=== PATIENT | female | born 1965 | race Caucasian/White ===

== ENCOUNTER 2018-05-02 16:10 | Emergency (ER) | payer MEDICAID ==
[~2018-05-02] VITALS: Ht 170.2 cm; Wt 77.1 kg
[2018-05-02] MEDS ORDERED: DOXYCYCLINE HY100 MG PO (16:40)
== END 2018-05-02 16:44 | disposition home or self-care (01) ==
LOC: ED 16:10
DX: L03.116 Cellulitis of left lower limb (principal); Z86.14 Personal history of Methicillin resistant Staphylococcus aureus infection; J45.909 Unspecified asthma, uncomplicated; F17.200 Nicotine dependence, unspecified, uncomplicated
CPT/HCPCS: 99283

== ENCOUNTER 2018-06-07 17:42 | Emergency (ER) | payer MEDICAID ==
[~2018-06-07] VITALS: Ht 170.2 cm; Wt 77.1 kg
[~2018-06-07 17:42] MED LIST: DOXYCYCLINE HY100 MG PO
== END 2018-06-07 19:10 | disposition left against medical advice (07) ==
LOC: ED 17:42
DX: Z53.21 Procedure and treatment not carried out due to patient leaving prior to being seen by health care provider (principal)

== ENCOUNTER 2021-12-04 22:00 | Inpatient (IN) | payer MEDICAID ==
[~2021-12-04] VITALS: Ht 170.2 cm; Wt 90.7 kg
--- OUTSIDE RECORDS SUMMARY | 2021-12-04 22:08 | XMS ---
PreManage Notification: ARCENIO LOMELI Security Continuous Still Operator Events No recent Security Events currently on file CRITERIA MET - [facility] - 2 Visits in 30 Days CARE PROVIDERS There are no care providers on record at this time. Care Guidelines exist for the following facilities: [facility] ( 02/15/2016 ) David VISIT COUNT (12 MO.) 2 [facility] Tiffanie Alas[address] TOTAL 3 NOTE: Visits indicate total known visits. ED/UCC VISIT TRACKING (12 MO.) 12/04/2021 22:01 DAMIEN Menjivar TYPE: Emergency COMPLAINT: - L HAND INFECTION [facility] DIAGNOSES: - Cellulitis of left upper limb - left hand swelling, hit hand against wall - Pain in left hand - Hand Pain 09/24[facility]2021 16[facility] DIAGNOSES: - Phlebitis and thrombophlebitis of superficial vessels of unspecified lower extremity - lt leg poss infection - Cellulitis of left lower limb - Cellulitis - Leg Pain (Non-traumatic) INPATIENT VISIT TRACKING (12 MO.) No inpatient visits to display in this time frame [email or web address]
[2021-12-04] MEDS ORDERED: ELIQUIS5 MG PO (22:18)
[2021-12-04] MEDS ORDERED: VENTOLIN HFA18 GM INH (22:18)
[2021-12-04] MEDS ORDERED: BACTRIM DS TAB1 EACH PO (22:19)
--- NOTE | 2021-12-05 01:45 | NUR ---
REPORT FROM FLOWER Cooper
--- NOTE | 2021-12-05 02:05 | NUR ---
PT ARRIVED FROM E.D. TO ROOM 119, PATIENT FINANCIAL ADVOCATEILDA ROMERO TO CHECK IN AND START ADMISSION.
--- NOTE | 2021-12-05 02:48 | NUR ---
PT ARRIVED TO [facility] AT 0205, SHE M[facility] OVER [facility] IV ABX COMPLETED AND LR IS NOW INFUSING PER ORDERS. ADMINISTERED 0.6MG OF IV DILAUDID FOR 9/10 PAIN. PROVIDED SNACK TO PT. SHE STATES SHE TOOK 2 PILLS OF ELIQUIS IN THE PAST 24HRS INCASE SHE HAD A CLOT IN HER ARM. PT STATES THIS WAS ELIQUIS LEFT OVER FROM A PREVIOUS BLOOD CLOT IN HER LEG. PT IS EATING A SNACK SITTING AT THE EDGE OF THE BED AT THIS TIME AND DENIES FURTHER NEEDS. CALL LIGHT IS CLOSE.
--- NOTE | 2021-12-05 03:25 | NUR ---
PT ASSISTED TO SET UP FOR SHOWER AT THIS TIME. DISCUSSED PLAN FOR AFTER SHOWER, WILL NEED TO KEEP ARM ELEVATED.
--- NOTE | 2021-12-05 04:08 | NUR ---
PT IN SHOWER, HER SPOUSE IS IN BATHROOM WITH HER ASSISTING WITH SHOWER.
--- NOTE | 2021-12-05 04:53 | NUR ---
PT ADMINISTERED 0.6MG IV DILAUDID FOR PAIN AT LEFT HAND 9/10. PT HAS LEFT HAND ELEVATED IN PILLOW SLING, ICE AT BEDSIDE FOR INTERMITTEN USE. NICOTINE PATCH 14MG PLACED TO RIGHT SHOULDER. PHOTOS TAKEN FOR CHART/ RED CELLULITIS AREAS OUTLINED WITH SKIN MARKER. PHOTO CONSENT SIGNED AND IN CHART ALSO.
--- NOTE | 2021-12-05 05:32 | NUR ---
PT ADMITTED THIS APPROX 0200, SHE HAS SHOWERED, SPOUSE AT BEDSIDE, PHOTOS IN CHART AND CELLULITIS OUTLINED, SHE HAS BEEN REPORTING PAIN 9-10/10 PAIN DILAUDID PRN ADMINISTERED X2 OVER SHIFT. HER LEFT ARM IN PILLOW SLING. AFEBRILE, V/S STABLE.
--- NOTE | 2021-12-05 07:58 | NUR ---
PATIENT REQUESTED PAIN MEDICATION FOR 10/10 PAIN IN HER LEFT HAND. 0.6MG IV DILAUDID ESTEBAN SIVKumar. PATIENT ARE UP IN PILLOWCASE SLING FROM [facility]. PATIENT'S CAPREFILL<3 SECONDS IN ALL LEFT FINGERS AND PATIENT HAS FULL SENSATION OF FINGERS AND CAN MOVE HER FINGERS. COFFEE WITH CREAM AND SUGAR GIVEN TO BOTH PATIENT AND HER SPOUSE. PATIENT HAS NO OTHER CARE NEEDS AT THIS TIME. IN HOUSE REVIEWING THE CHART. CALL IS IN PATIENT'S REACH.
--- NOTE | 2021-12-05 09:26 | NUR ---
PT IS INDEPENDENT IN THE ROOM TO GET TO BATHROOM AND BACK TO BED. AT BEDSIDE. PT IS COMMUNICATING PAIN IN THE HAND AND MOANING AND GRIMMACING. LIDA CRENSHAW NOTIFIED. NO FURTHER NEEDS AT THIS TIME.
--- NOTE | 2021-12-05 10:36 | NUR ---
PATIENT CRYING AND SAYING SHE IS HAVING 10/10 PAIN IN HE LEFT HAND. PO PAIN MEDICATIONS GIVEN AND IV PAIN MEDS HELD AT THIS TIME ASSESSMENT OF IV SITE SHOWS IV IS INFILTRATED AND IV HAS BEEN STOPPED. PO ANXIETY MEDS ALSO GIVEN AND HIGHER DOSE HI/PATCH PLACED ON RIGHT SHOULDER AND OLD PATCH REMOVED. AT BEDSIDE TRYING TO REASSURE PATIENT. PATIENT INFORMS ME THAT SHE DRINKS A 5TH TO A HALF GALLON OF VODKA A DAY FOR THE LAST 5 YEARS. CALL LIGHT IS IN REACH.
--- NOTE | 2021-12-05 10:46 | NUR ---
INFORMED ABOUT PATEINT'S ETOH HX AND INTAKE AND BEER WITH MEALS HAS BEEN ORDERED AND [employer] IS SENDING SOME UP. LIDA BUSBY IS GOING IN TO TRY AND START A NEW IV ON THE PATIENT.
--- NOTE | 2021-12-05 12:04 | NUR ---
AWAITING PICC LINE RN TO START NEW IV PT HAS BEEN UNABLE TO KEEP ACCESS WITHOUT INFILTRATING.
--- NOTE | 2021-12-05 13:33 | NUR ---
PT ASLEEP IN BED WITH LEFT HAND ELEVATED. PTS LEAVING TO GO HOME WITH PLANS TO RETURN. CALL LIGHT IN REACH. NO FURTHER NEEDS AT THIS TIME
--- NOTE | 2021-12-05 13:54 | NUR ---
PT NAPPING IN BED. GIVEN TORADOL AND STARTED VANCO. ADVISED PT TO CALL IMMEDIETLY IF IT STARTS TO HURT
--- NOTE | 2021-12-05 14:28 | NUR ---
PATIENT CURRENTLY HAS HER SECOND BEER FOR THE DAY OPEN ON HER BEDSIDE TABLE AND IS ASLEEP. RESPIRATIONS ARE REGULAR AND EVEN, AND HER CALL LIGHT IS IN REACH.
--- NOTE | 2021-12-05 16:40 | NUR ---
SCHEDULED IV TORADOL SIVP GIVEN BY THIS RN. PATIENT HAS BEEN SLEEPING SINCE LUNCH AND SHOWER AND SECOND BEER IS STILL HALF FULL ON THE BEDSIDE TABLE. RESPIRATIONS=17 AND O2 SAT=96% ON RA. WOKE PATIENT LONG ENOUGH TO CHECK CAP REFILL IN LEFT HAND FINGERS AND CHECK SENSATION AND MOTION. PATIENT CAN STILL WIGGLE ALL FINGERS, CAN FILL ALL HER FINGER TIPS, AND CAP REFILL <3 SECONDS IN ALL FINGERS AND THUMB. PATIENT DENIES ANY OTHER CARE NEEDS AT THIS TIME. CALL LIGHT IN REACH. LEFT ARM IN PILLOW SLING.
--- NOTE | 2021-12-05 17:45 | NUR ---
PATIENT CALLED AND IS STILL HUNGRY. ATE 100% OF HER DINNER AND SINCE HER IS NOT HER SHE IS NOW EATING HIS TRAY. PATIENT WORKING ON HER 3RD BEER FOR THE DAY. PATIENT SAYS THE PAIN IN HER HAND IS 6/10 AT THIS TIME AND SAID,"I'M EMMIE COMFORTABLE RIGHT NOW." CALL LIGHT IN REACH AND PATIENT HAS NO OTHER NEEDS AT THIS TIME.
--- NOTE | 2021-12-05 17:58 | NUR ---
THIS RN WENT BY TO CHECK ON PATIENT AND SHE WAS UP IN THE ROOM GETTING BACK TO THE BED AFTER USING THE BEDSIDE COMMODE. PATIENT HAD HER IV LINE, NG-TUBEE, AND RECTAL TUBE ALL TANGLED UP. THIS RN ASSIST PATIENT IN GETTING BACK IN TO BED AND SORTING HER LINES. I HAVE ASKED PATIENT TO PLEASE CALL IF SHE GETS UP FROM NOW ON [facility] SHE HAS SO MANY LINES. PATIENT VERBALIZED UNDERSTANDING, BUT BED ALARM ALSO PLACE ON. PATIENT SAYS PAIN REMAINS 3/10 AND SHE IS DOING OK. CALL LIGHT IS IN REACH.
--- NOTE | 2021-12-05 18:36 | NUR ---
PATIENT UP TO BATHROOM AND BACK TO BED IND. VITALS AND I&O'S CHARTED. CALL LIGHT IN REACH. NO FURTHER NEEDS AT THIS TIME.
--- NOTE | 2021-12-05 18:49 | NUR ---
PATIENT CALLED FOR 7/10 LEFT HAND PAIN AND WAS GIVEN PO PAIN MEDICATIONS. SEE EMAR. PATIENT DENIED ANY OTHER CARES AT THIS TIME. CALL LIGHT IN REACH.
--- NOTE | 2021-12-05 19:46 | NUR ---
BEDSIDE REPORT FROM FLOWER Lopez RN, PT RESTING IN BED, ALERT AND ORIENTED. SHE HAS HER ARM IN PILLOW CASE SLING, HER IV PUMP IS ALARMING DISTAL OCCLUSION, RESTARTED, NOTED SWELLING AT RIGHT FA, IV SITE AREA, FLOWER RN SAID THAT THIS IS WHERE THE LAST IV SITE INFILTRATED, AWARE, THIS IS LONG ULTRA SOUND GUIDED IV SITE, AND PER FLOWER RN SITE HAS IMPROVED IN REGARDS TO SWELLING.
--- NOTE | 2021-12-05 19:49 | NUR ---
PT REPORTS SHE IS TOO WARM, ROOM TEMP TURNED DOWN AND BEDSIDE FAN PROVIDED.
--- NOTE | 2021-12-05 20:53 | NUR ---
CALL LIGHT ANSWERED. SANDWICH BOX AND BEER PROVIDED REQUESTED. IV ALARMING DISTAL OCCLUSION, CORD CAUGHT IN BED, INFUSING WNL AT THIS TIME. NO ADDITIONAL REQUESTS. CALL LIGHT IN REACH.
--- NOTE | 2021-12-05 22:23 | NUR ---
PT CALLED UP TO BATHROOM TO HAVE BM, FLATUS POSITIVE, VOIDING. IV PUMP S/L FOR BATHROOM PT TANGLED IN LINE
--- NOTE | 2021-12-05 22:45 | NUR ---
INTO PT ROOM TO ROUND, ADMINISTER PRN PAIN AND ANXIETY MEDICATIONS, SHE IS RESTING IN BED ALERT TO STAFF, V/S TAKEN, PT NOTED TO BE DROWSY NODDING OFF TO SLEEP WITH SNORING WHILE NOT ENGAGED IN CONVERSATION. SHE REPORT HER PAIN 9/10 AT HER LEFT HAND, SHE THEN CLOSED HER EYES AND BEGAN TO SNORE. SHE IS ADMINISTERED TORDOL SCHEDULED, 5MG PO OXYCODONE PRN, TYLENOL 500MG PO PRN, AND VISTRIL 50MG PO PRN, SHE SWALLOWED THESE AND SAT UP TO EAT JELLO/PUDDING AND GRANOLA BARS AT BEDSIDE BEFORE SHE IS MADE NPO AT MIDNIGHT. PT HAS NO OTHER CONCERNS OR REQUESTS AT THIS TIME.
--- NOTE | 2021-12-05 23:08 | NUR ---
V/S AND I&O'S DONE AND RECORDED. EMPTIED HAT WITH 800ML URINE. COLD PACK MADE FOR LT HAND. TV GUIDE PROVIDED.
--- NOTE | 2021-12-06 00:30 | NUR ---
PT RESTING IN BED EYES CLOSED RR 22BPM, NO DISTRESS NOTED, NO DISTRESS NOTED. PT LEFT ARM IN PILLOW SLING.
--- NOTE | 2021-12-06 02:35 | NUR ---
PT RESTING QUIETLY IN BED, EYES CLOSED RR 18 BPM, NO DISTRESS NOTED, LEFT ARM ELEVATED UP IN PILLOW CASE SLING.
--- NOTE | 2021-12-06 04:09 | NUR ---
PT UP TO BATHROOM WITH FLOAT NURSE GUNNER RN AT THIS TIME, TO VOID. NO DISTRESS NOTED AT THIS TIME.
--- NOTE | 2021-12-06 04:20 | NUR ---
PT REPORTS PAIN 9/10 AFTER USE THE BATHROOM, PT ADMINISTERED 4MG IV MORPHINE AT THIS TIME PT IS NPO FOR POSSIBLE PROCEDURE TODAY.
--- NOTE | 2021-12-06 05:11 | NUR ---
PT HAS SLEPT WELLOVER SHIFT, UP TO BATHROOM X4, SHE HAS BEEN DROWSY WHEN AWAKE, SHE REPORTS PAIN 9/10 AT LEFT HAND, PRN PAIN MEDICATIONS MANAGEING PAIN WELL. SHE HAS BEEN NPO SINCE MIDNIGHT PER ORDERS. SHE HAS BEEN COOPERATIVE WITH PLAN OF CARE, HER LUE HAS BEEN IN PILLOW CASE SLING WHILE IN BED. SHE ALSO HAS ICE PACK TO TUCKS INTO SLING. SHE REPORTS LARGE QUANTITY OF HARD ALCOHOL INTAKE DAILY, YESTURDAY SHE WAS GIVEN BEERS WITH MEALS WELL BEER WITH LUNCH BOX EARLY IN SHIFT. VOIDING QUANTITY SUFFICIENT PLUS AND BM OVER SHIFT. NO OTHER NEW CONCERNS THIS SHIFT
--- NOTE | 2021-12-06 06:05 | NUR ---
lab unable to draw blood this am, this rn pulled blood from left fa iv site, with 4ml blood waste, then 4ml blood pulled for lab.
--- NOTE | 2021-12-06 06:44 | NUR ---
THIS RN TO ROOM TO ASSIST PTS PRIMARY RN WITH CARES. DR. HOLLIS TO BEDSIDE FOR ROUNDS, NEW ORDERS GIVEN TO APPLY DRESSING TO LEFT HAND. MEDIHONEY APPLIED. XEROFORM APPLIED OVER MEDIHONEY FOLLOWED BY KERLIX GAUZE. PT REPORTS DRESSING "FEELS BETTER." PTS PRIMARY RN REMAINS AT BEDSIDE. NO ADDITIONAL REQUESTS OR COMPLAINTS. CALL LIGHT WITHIN REACH. BED RAILS UP.
--- NOTE | 2021-12-06 07:34 | NUR ---
PT HEARD SCREAMING OUT. THIS RN TO ROOM. PT REPORTS SHE HAD A NIGHTMARE. PT REQUESTS MEDICATION FOR ANXIETY, SEE MAR FOR MEDICATION GIVEN. PUMP ALARMING, DISTAL OCCULSTION. IV ASSESSED, FLUSHES AND PT STATES SHE CAN TASTE SALINE, IV PUMP CONTINUES TO REPORT DISTAL OCCULSION, WILL NOT RESTART. ADDITIONAL BEER PROVIDED PER PT REQUEST. PT DRIFTS BACK TO RESTING WITH EYES CLOSED. RESPRAITIONS EVEN AND UNLABORED. BED RAILS UP. CALL LIGHT WITHIN REACH. PTS PRIMARY RN UPDATED.
--- NOTE | 2021-12-06 08:40 | NUR ---
LAB WAS ABLE TO DRAW BLOOD FROM RAC. PATIENT CAN FEELING HER FINGERS AND DENIES NUMBNESS OR TINGING IN THE HAND. PATIENT CAN MOVE ALL FINGERS AND CAP REFILL TO ALL FINGERS ,3 SECONDS. PATIENT GIVEN PO PAIN MEDS FOR 9/10 LEFT HAND PAIN ALONG WITH SCHEDULED AM MEDS. ASSISTED PATIENT IN SITTING UP FOR BREAKFAST AND PATIENT IS EATING. PATIENT HAS NO OTHE CARE NEEDS AT THIS TIME AND CALL LIGHT IS IN REACH.
--- NOTE | 2021-12-06 08:49 | NUR ---
PATIENT'S IV CONTINUES TO ALARM. IV WILL FLUSH, BUT IV WILL NOT RUN. IV TURNED OFF FOR NOW. CALL LIGHT IS IN REACH.
--- NOTE | 2021-12-06 10:11 | NUR ---
PATIENT IN BED RESTING WITH EYES CLOSED. VITALS AND I&O'S CHARTED. CALL LIGHT IN REACH. NO FURTHER NEEDS AT THIS TIME.
--- NOTE | 2021-12-06 10:30 | NUR ---
THIS RN TO ROOM TO ASSIST DR. MORALES WITH CENTRAL LINE PLACEMENT. LINE PLACEMENT UNSUCESSFUL AT THIS TIME. PT RESTING WITH EYSE CLOSED, SNORNING NOTED, THROUGHOUT PROCEEDURE UNTIL THE LAST 5 MINUTES WHEN PT BEGAN CRYING WITH "10! 10!" OUT OF 10 PAIN. PROCEEDURE STOPPED. PT DRINKS REMAINDER OF BEER AT BEDSIDE AND IS MADE NPO FOR POSSIBLE LINE PLACEMENT IN [place]. PT RESTING ON LEFT SIDE. BED RAILS UP. CALL LIGTH WITHIN REACH. BED RAILS UP. PTS PRMARY RN AND CHARGE NURSE UPDATED.
--- NOTE | 2021-12-06 11:22 | NUR ---
HAS BEEN IN THE ROOM FOR OVER AN HOUR WITH LIDA HCUNG TRY TO PLACE A CENTRAL LINE WHICH WAS UNSUCCESSFUL. PATIENT IS GOING TO NEED TO GO TO SURGERY TO HAVE THE LINE PLACE. PATIENT C/O 9/10 PAIN IN HER LEFT HAND AND NECK NOW. PO OXYCODONE GIVEN. PATIENT IS NOW ON THE PHONE YELLING AT SOMEONE AND TELLING THEM NOT TO COME SEE HER. LIDA CHUNG CAME IN AND TOLD PATIENT SHE WILL HAVE TO BE NPO FOR SURGERY FOR THE NEXT 6 HOURS. PATIENT VERBALIZED UNDERSTANDING AND FINISHED DRINKING THE BEER SHE JUST OPENED. CALL LIGHT IS IN REACH.
--- NOTE | 2021-12-06 11:30 | NUR ---
MICHAEL NOE, TO PTS BEDSIDE TO ASSESSMENT FOR LINE PLACEMENT. PT UPDATED ON PLAN OF CARE. RAYMOND ROMAN RN, ASSITING CUT OFF MACHINE OPERATOR. PT REMAINS NPO.
--- NOTE | 2021-12-06 13:03 | NUR ---
MERLIN, PICC LINE RN, REPORTS TO THIS RN THAT PICC LINE IS CLEAR TO USE. PICC LINE MEASUREMENTS REPORTED 44CM, 2CM EXPOSED, 37 RIGHT ARM CIRCUMFERENCE. LUNCH DELIVERED TO PT. PT SITTING UP IN BED EATING LUNCH. LETTER STAMPING MACHINE OPERATOR AND PTS PRIMARY RN UPDATED. CALL LIGHT ANKITA REACH. BED RAILS UP.
--- NOTE | 2021-12-06 14:03 | NUR ---
PICC LINE HAS BEEN CLEARED FOR USE AND QI CHARGE NURSE HAS HUNG AND STARTED VANCO. PATIENT CAN STILL FEEL AND MOVE ALL HER FINGERS. CAP REFILL TO FINGERS <3 SECONDS. PATIENT IS WORKING ON ANOTHER BEER AND HAS BEEN SLEEPING WHEN STAFF IS NOT WORKING WITH HER. CALL LIGHT IN REACH AND NO OTHER CARE NEEDS NOTED AT THIS TIME.
--- NOTE | 2021-12-06 14:06 | NUR ---
PICC LINE INSERTION: ASKED BY DR VILLEDA TO EVALUATE PATIENT FOR POTENTIAL PICC LINE PLACEMENT DUE TO POOR ACCESS, UNABLE TO DRAW LABS, AND IV ABX. AFTER REVIEWING THE CHART AND INTERVIEWING THE PATIENT, NO ABSOLUTE CONTRAINDICATIONS WERE IDENTIFIED. PATIENT WAS ABLE TO SIGN CONSENT FORM AND ASKS QUESTIONS APPROPRIATELY. PATIENT'S RIGHT ARM IS EVALUATED, LEFT ARM IS GROSSLY INFECTED. USING THE SITE RITE U/S, THE PATIENT'S BRACHIAL VEIN WAS IDENTIFIED. UNABLE TO IDENTIFY RIGHT BASILIC D/T RECENT INFILTRATION OF RIGHT UPPER ARM IV. THE BRACHIAL LOOKS TO BE A GOOD CANDIDATE. NOTED TO BE GREATER THAN 8FR BY SITE RITE U/S. CDC RECOMMENDED GUIDELINES FOR STERILE PREP OF THE INSERTION SITE WERE THEN FOLLWED. THE BRACHIAL VEIN WAS ACCESSED EASILY UPON THE FIRST ATTEMPT. BRISK, DARK, NONPULSATILE BLOOD WAS RETURNED. GUIDEWIRE THREADED EASILY INTO VEIN, WELL INTRODUCER, AND 4FR DUAL PICC LINE. THE PICC WAS PLACED WITH 3ECG AND MAGNET GUIDEANCE, AND NOT ATTEMPTS WERE NEEDED TO REPOSITION PICC. STERILE DRESSING APPLIED AND CHEST XRAY TAKEN. CONFIRMED PLACEMENT IN SUPERIOR VENA CAVA BY DR YEIMI MCNULTY. REPORT TO SHELDON HILTON. PATIENT GIVEN EDUCATION MATERIAL ON PICC. PATIENT ENCOURAGED TO ASK QUESTIONS REGARDING HER PICC NEEDED.
--- NOTE | 2021-12-06 15:31 | NUR ---
PATIENT WAS ASLEEP WHEN THIS RN WENT IN THE ROOM. IN CHAIR AT BEDSIDE. DISCUSSING SHOWER OPTIONS FOR PATIENT WITH ABOUT ASSISTING AND PATIENT WOKE UP SAYING SHE WAS HAVING 8/10 LEFT HAND PAIN. INFORMED THE PATIENT SHE NEEDS TO KEEP HER ARM IN THE PILLOW CASE SLING TO HELP WITH PAIN AND PRESSURE AND PATIENT GIVEN 30MG IV TORADOL. PATIENT'S VANCO STILL INFUSING, WILL DISCUSS SHOWER OPTIONS WHEN INFUSED. CALL LIGHT IS IN REACH.
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
--- NOTE | 2021-12-06 18:33 | NUR ---
PATIENT LEFT HAND DRESSING CHANGED. AREA REMAINS RED AND SWOLLEN WITH SEROSANGUINOUS DRAINAGE. MEDIHONEY APPPLIED, THEN XEROFORM, THEN KERLIX, SECURED BY TAPE. PATIENT TOLERATED THE PROCEDURE WELL. PATIENT HAS NO OTHER CARE NEEDS AT THIS TIME. AT BEDSIDE. PATIENT ATE 100% OF DINNER AND SHE IS DRINKING A BEER. CALL LIGHT IS IN REACH.
--- NOTE | 2021-12-06 18:50 | NUR ---
PT ASLEEP IN BED. PT IS HARD TO WAKE UP. IN ROOM. COAL HANDLER GARY IN ROOM TO ASSIST WITH GETTING PT IN THE SHOWER.
--- NOTE | 2021-12-06 19:43 | NUR ---
BEDSIDE REPORT FROM FLOWER Lopez RN, PT HAS COMPLAINTS IN REGARDS TO DIFFICULTY WITH PLACEMENT OF VACULAR ACCESS, ALSO SHE WAS WANTING A SHOWER AND THIS WAS POSTPONED DUE TO CARE NEEDS. PICC LINE FINALLY PLACED. PT JUST COMPLETED HER SHOWER.
--- NOTE | 2021-12-06 20:40 | NUR ---
CALL LIGHT ANSWERED. pt C/O 07/09 PAIN IN LEFT HAND, NECK PAIN. PRN PAIN MEDICATION, PRN ANXIETY MEDICATION ADMINISTERED REQUESTED. pt PROVIDED WITH BEER PER REQUEST. AWAKE WATCHING TV, SHIFTING IN BED. CALL LIGHT IN REACH. NO ADDITIONAL REQUESTS.
--- NOTE | 2021-12-06 23:23 | NUR ---
ON ENTRY TO PT ROOM PT NOTED TO BE SLEEPING RR 20 BPM, SNORING NOTED. SHE WOKE TO HER NAME FOR V/S AND ASSESSMENT. PT REPORTS PAIN 9/10 TORDOL IV ADMINISTERED. SHE ALSO REQUESTED MEAL/FOOD AND BEER. PROVIDED.
--- NOTE | 2021-12-07 01:55 | NUR ---
PT CALLED CRYING IN PAIN, IV PUMP ALARMING, THIS RN INTO ROOM, PT REPORTS THAT SHE IS PAINFUL, HUNGERY AND HAD A BAD DREAM. PT ADMINISTERED 10MG PO PRN OXYCODONE, TYLENOL 500MG PO PRN, GIVEN A FOOD BOX. IV PUMP S/L AFTER VANCO FINISHED.
--- NOTE | 2021-12-07 05:33 | NUR ---
PT HAS SLEPT MOST OF SHIFT. SHE HAS BEEN AWAKE INTERMITTENLY WANTING PAIN MEDICATIONS AND FOOD. SHE WAS TEARFUL AT ONE POINT REPORTING HAVING HAD A BAD DREAM AND PAIN AND WANTING FOOD. SHE HAS BEEN INDEPENDENT IN ROOM TO VOID. SHE DRESSING REINFORCED A START OF SHIFT, WILL CHANGE DRESSING BEFORE SHIFT CHANGE. NO NEW CONCERNS THIS SHIFT.
--- NOTE | 2021-12-07 06:32 | NUR ---
DRESSING CHANGED AT LEFT WRIST, NOTED THAT SANJIV WOUND SKIN IS SLOUGHING, RED AND PURPLE SANJIV SKIN, SEE PHOTOS TAKEN THISAM
--- NOTE | 2021-12-07 07:30 | NUR ---
SHIFT REPORT RECEIVED BY THIS NURSE FROM LIDA ANDRADE. PATIENT RESTING QUIETLY IN IN LOW FOWLERS POSITION, EYES CLOSED, RESPIRATIONS ARE REGULAR AND EVEN, C ALL LIGHT MIN REACH.
--- NOTE | 2021-12-07 07:51 | NUR ---
[facility] as pt indicated she would like to have pcp at their office. Attempted to call but no answer. Will call again after 8 am. Contacted Irene WAGONER and updated this pt will need assist with phone, housing, transport etc. I will attempt to contact Chandni who assists with OHP today again. Emailed Irene a referral.
--- NOTE | 2021-12-07 09:53 | NUR ---
PATIENT CALLING FOR PAIN MEDS FOR 10 LEFT HAND PAIN AFTER PA DRAINED THE WOUND AND REDRESSED IT AND 05/08 IN HER RIGHT NECK WHERE THEY TRIED TO GET THE CENTRAL LINE YESTERDAY. PATIENT NOT DUE FOR OXYCODONE YET SO 4MG SIVP MORPHINE GIVEN WITH SCHEDULED TORADOL AND PREMEDICATED WITH ZOFRAN TO PREVENT NAUSEA. PATIENT STILL HUNGRY SO SECOND BREAKFAST ORDERED AND EATEN BY PATIENT. PATIENT UP TO THE BATHROOM 1PSBA AND BACK TO BED AFTER COMPLETE BED CHANGE DONE AND NEW GOWN PUT OB SO PATIENT COULD FEEL MORE FRESH. PATIENT HAS A BEER SHE IS DRINKING. CALL LIGHT IN REACH.
--- NOTE | 2021-12-07 10:45 | NUR ---
Pt resting in low Fowlers, RR at 12 per min. Call light within reach.
--- NOTE | 2021-12-07 11:42 | NUR ---
PATIENT RESTING QUIETLY IN LOW FOWLERS POSTION, EYES CLOSED, RESPIRATIONS ARE REGULAR AND EVEN, CALL LIGHT IS IN REACH. NO CARE NEEDS NOTED AT THIS TIME.
--- NOTE | 2021-12-07 12:56 | NUR ---
PATIENT ATE 100% OF LUNCH AND IS DRINKING HER BEER. PATIENT C/O ZHAO=10/10, ABD PAIN 7/10, LEFT HAND PAIN 9/10, AND 10MG PO OXYCODONE GIVEN AND 500MG TYLENOL. PATIENT HAD NO OTHER CARE NEEDS AT THIS TIME CALL LIGHT IS IN REACH.
--- NOTE | 2021-12-07 13:00 | NUR ---
Spoke with Alysa. She is drinking a beer during our visit. We discussed her alcohol use. Eyes are open today, but does not make any eye contact. I asked if she would ever want to stop drinking. Pt. states she would like to stop. I asked if she would be willing to speak with KAREN and explained who and what they do. She states Yes. I will call them to have them see her today.
--- NOTE | 2021-12-07 14:00 | NUR ---
Called and spoke with Lolita fierro KAREN she will have one of the PEERS visit today.
--- NOTE | 2021-12-07 14:14 | NUR ---
STAFF AND SN IN ASSISTING PT, WILL CHECK BACK
--- NOTE | 2021-12-07 14:21 | NUR ---
Pt resting comfortably, low thurston's, watching TV. States she still has pain in her hand but it is "getting better." She was unable to rate the pain on a 0-10 scale. She is drinking a beer and states she would like to take a nap. PICC line flushed with 20 ml NS in each lumen with RN instructor.
--- NOTE | 2021-12-07 16:00 | NUR ---
Call from Capri. She will visit today.
--- NOTE | 2021-12-07 16:39 | NUR ---
PATIENT'S PAIN CONTROLLED AT THIS TIME. CALL LIGHT IN REACH. HAS BEEN SIPPING ON BEER BETWEN HER MEALS AND NAPPING PERIODICALLY. PATIENT HAS NO CURRENT CARE NEEDS.
--- NOTE | 2021-12-07 17:06 | NUR ---
THIS RN WENT TO CHECK ON PATIENT AND SHE IS HAVING 8/10 PAIN IN HER LEFT HAND FROM 6/10 THE LAST TIME I CHECKED. PO OXYCODONE 10MG AND PO TYLENOL GIVEN WITH SCHEDULED TORADOL. PATIENT BEING COMPLIENT KEEPING HER LEFT ARM IN PILLOW CASE SLING. PATIENT HAS NO OTHER CARER NEEDS AT THIS TIME. CALL LIGHT IS IN REACH.
--- NOTE | 2021-12-07 18:42 | NUR ---
PATIENT IN BED RESTING WITH EYES CLOSED. VITALS AND I&O'S CHARTED. CALL LIGHT IN REACH. NO FURTHER NEEDS AT THIS TIME.
--- NOTE | 2021-12-07 19:00 | NUR ---
RECEIVED REPORT, PT IS RESTING IN BED WITH EYES CLOSED, RR IS EVEN AND UNLABORED. CALL LIGHT IS CLOSE.
--- NOTE | 2021-12-07 21:38 | NUR ---
PHONE CALL FROM pt'S MOTHER ZOFIA. NOT ON CONTACT LIST. IN TO ASK pt IF SHE WOULD LIKE MOTHER UPDATED OR TRANSFERRED TO ROOM. pt RESTING IN BED WITH EYES CLOSED, BREATHING UNLABORED. DOES NOT OPEN EYES RN ENTERS ROOM. ALLOWED TO REST AT THIS TIME.
--- NOTE | 2021-12-07 22:20 | NUR ---
IN pt ROOM TO INFORM pt THAT MOTHER CALLED, NOT ON CONTACT. PER pt OKAY TO HAVE MOTHER UPDATED, ZOFIA LÓPEZ. pt REQUESTS BE REMOVED FROM CONTACT IN COMPUTER, HAVE MOTHER ADDED. STATES "HE HASN'T VISITED ME IN THREE DAYS". pt SITTING AT SIDE OF BED. NO REQUESTS AT THIS TIME.
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
--- NOTE | 2021-12-07 23:59 | NUR ---
PT IS RESTING WITH EYES CLOSED, RR IS EVEN AND UNLABORED CALL LIGHT IS CLOSE. IV IS INFUSING FINE.
--- NOTE | 2021-12-08 01:27 | NUR ---
IV ABX TUBING DC'D AND TORADOL ADMINISTERED. PT WOKE MOMENTARILY AND BACK ALSEEP QUICKLY. LINE IS HEPLOCKED AT THIS TIME. CALL LIGHT IS CLOSE. RR IS EVEN AND UNLABORED.
--- NOTE | 2021-12-08 03:19 | NUR ---
PT IS RESTING WITH EYES CLOSED, RR IS EVEN AND UNLABORED. CALL LIGHT IS CLOSE.
--- NOTE | 2021-12-08 04:22 | NUR ---
PATIENT GIVEN BEER AND HOT WATER PRE REQUEST. PATIENT RATES PAIN AT A 8/10 IN HER NECK AND HAND. PATIENT GIVEN PRN PAIN MEDICATION PER ORDER. NO FURTHER NEEDS NOTED. CALL LIGHT IN REACH.
--- NOTE | 2021-12-08 06:27 | NUR ---
PT IS RESTING WITH EYES CLOSED, RR IS EVEN AND UNLABORED. CALL LIGHT IS CLOSE.
--- NOTE | 2021-12-08 07:28 | NUR ---
REPORT RECIEVED FROM LIDA ROMERO. PT RESTING IN BED ON BACK WITH EYES CLOSED. RESPIRATIONS EVEN AND UNLABORED. BED RAILS UP. CALL LIGHT WITHIN REACH. PT ALLOWED TO REST.
--- NOTE | 2021-12-08 08:36 | NUR ---
0813 - QUIETLY RESTING IN BED. RIGHT PICC DEVICE INTACT. FLUSHES EASILY. VANCO TROUGH LAB DRAWN PER PROTOCOL. PT DENIES C/O OR NEEDS AT THIS TIME 0832 - PT REQ BEER, GIVEN PER ORDERS. UP TO BATHROOM BY SELF. STEADY ON FEET. ENCOURAGED PT TO PLACE LEFT ARM/HAND IN SLING MUCH POSSIBLE.
--- NOTE | 2021-12-08 08:43 | NUR ---
MORNING ASSESSMENT AND MEDICATION DUE. THIS RN TO ROOM. DELIO, RN WORKING WITH PT. PT REPORTS 10/10 PAIN IN LEFT HAND, SEE MAR FOR MEDICATION GIVEN. PT REPORTS HIGH ANXIETY AND HEARTBURN. MESSAGE SENT TO . PICC LINE ASSESSED, WNL, BRISK BLOOD RETURN NOTED. PICC LINE SALINE LOCKED AT THIS TIME PENDING VANCOMYCIN INFUSION. PT ORIENTED TO ALL. LUNG SOUNDS CLEAR. HEART TONES REGUALR. GENERALIZED EDMA CONTINUES IN LEFT HAND. BRIDGET SOLIS, TO BEDSIDE TO ROUND ON PT. VERBAL ORDERS GIVEN FOR Q6PRN TUMS, ORDER ENTERED. IRMA REMOVES HAND DRESSING AND DOES ADDITIONAL DEBREADING OF LEFT AND WOUND. PT AGITATED WITH CARES BUT TOELRATES DRESSING CHANGE AND DEBREADMENT. PICTURES TAKEN PER PT REQUEST. WOUND APEPARS MACERATED, ADDITIONAL PUSS REMOVED PER IRMA. REDNESS RECEDING FROM MARKED LINE. NEW DRESSING APPLIED PER IRMA, NIYA, ZEROFORM, COVERD WITH KERLIX. PT ENCORUGED TO ELVATED HAND IN PILLOW SLING, REFUSES STATING "I'M GOING TO EAT BREAKFAST FIRST." PT DRIFTS OFF TO SLEEP, RESTING WITH EYES CLOSED. CONTINUES TO DECLINE ARM ELEVATION WHEN ASKED. PT CONTINUES TO REPROT ANXIETY, SEE MAR FOR MEDICATION GIVEN. HEART BURN MEDICATION GIVEN. PT DRIFTS QUICKLY BACK TO SLEEP. NO ADDITIONAL REQUESTS OR COMPLAINTS. CALL LIGHT WITHIN REACH. BED RAILS UP.
--- NOTE | 2021-12-08 10:24 | NUR ---
THIS RN TO ROOM TO CHECK ON PT. PT RESTING WITH EYES CLOSED, RESPIRATIONS EVEN AND UNLABORED. PT AWAKENES TO VOICE AND TOUCH. PT CONTINUES TO REPORT HEARTBURN, SEE MAR FOR MEDICAITON GIVEN. PT REPORTS 8/10 PAIN AND QUICKLY FALLS BACK TO SLEEP. ARM ELEVATED IN PILLOW SLING BY THIS RN. PT REPORTS SHE WILL LEAVE ARM IN THIS POSITION FOR NOW. PHARMACIST STATES TO HOLD VANCOMYACIN DOES RELATED TO TROUGH. PICC LINE HEPARI LOCKED. NO ADDITIONAL NEEDS AT THIS TIME. PT RESTING WITH EYES CLOSED, MILD SNORNING NOTED. BED RAILS UP. CALL LIGHT WITHIN REACH.
--- NOTE | 2021-12-08 11:20 | NUR ---
THIS RN TO ROOM TO CHECK ON PT. PT RESTING ON LEFT SIDE WITH EYES CLOSED, RESPIRATIONS EVEN AND UNLABORED. LEFT HAND REMAINS IN PILLOW CASE SLING. NO ADDITIONAL NEEDS AT THIS TIME. CALL LIGHT WITHIN REACH. BED RAILS UP.
--- NOTE | 2021-12-08 12:00 | NUR ---
NEW VANCO DOES ARRIVED FROM [facility]. PICC LINE ASSESSED, WNL, BRISK BLOOD RETURN NOTED. VANCO STARTED ORDERED (SEE MAR). LUNCH DELIVERED WELL BEER. PT CONTINUES RESTING WITH EYES CLOSED ON LEFT SIDE. LEFT ARM ELEVATED IN PILLOW SLING. NO ADDITIONAL NEEDS AT THIS TIME. RESPIRATIONS EVEN AND UNLABORED. CALL LIGHT WITHIN REACH. BED RAILS UP.
--- NOTE | 2021-12-08 12:30 | NUR ---
Pt sleeping, not awakened. Call from [facility] and they state concern infection in had maybe from an injection site. Discussed pt states it is from hitting her hand in the home.
--- NOTE | 2021-12-08 12:50 | NUR ---
BLOOD CUTULRES ORDERED. THIS RN TO ROOM TO ASSIST WITH DRAW. 10ML WASTE REMOVED FROM PICC LINE. 10ML DRAW GIVEN TO CHELSY TO BOTTLE FOR LAB. PT REPORTS "I CAN'T CATCH MY BREATH." ASSESSMENT DONE. LUNG SOUNDS CLEAR. OXYGEN SATURATIONS 98% ON ROOM AIR. RR = 18-20. PT REPORTS CONSTIPATION. STOOL SOFTENER ORDERD PER NIO ORDERS. PT DRIFTS BACK TO SLEEP. RESTING WITH EYES CLOSED. RESPRATIONS EVEN AND UANBLORED. LEFT ARM ELEVATED IN PILLOW SLING. CALL LIGHT WITHIN REACH. BED RAILS UP.
--- NOTE | 2021-12-08 13:05 | NUR ---
ADDITIONAL BLOOD CULTURES DUE. 10ML WASTE AND 10ML LAB DRAW FROM PICC LINE. IV INFUSION STOPPED DURING DRAW. VIALS SENT TO LAB. PT UP TO RESTROOM WITH STAND BY ASSIST. PT STEADY ON FEET. PT VOIDS 350ML CLEAR YELLOW URINE. STAND BY ASSIST BACK TO BED. PT RESTING IN BED WITH EYES CLOSED. RESPIRATIONS EVEN AND UNLABORED. CALL LIGHT WITHIN REACH. BED RAILS UP.
--- NOTE | 2021-12-08 14:34 | NUR ---
AFTERNOON ASSESSMENT DUE. THIS RN TO ROOM. PT REQUESTS A SHOWER. PT REPORTS 8/10 PAIN IN LEFT HAND, DECLIENS PAIN MEDICATION AT THIS TIME STATING SHE WOULD LIKE TO SHOWER FIRST. ASSESSMENT DONE. PT DENIES [place]. PT ORIENTED TO ALL AND PARITICPATING IN CARES. IV ABX INFUSION AND FLUSH COMPELTE. BOTH LUMENS OF PICC LINE HEPARIN LOCKED AT THIS TIME. ALCOHOL CAPS APPLIED. LINE COVERED FOR SHOWER. LUNG SOUNDS CLEAR. HEART TONES REGULAR. LEFT HAND WOUND DRESSING REMAINS IN PLACE. SMALL AMOUNT OF YELLOW DRAINAGE NOTED AT TOP EDGE OF BANDAGE. PT ABLE TO MOVE FINGERS, PULSES WNL. PT CONTINEUS TO REPORT CONSTIPATION. LEFT HAND DRESSING COVERED FOR SHOWER. STAND BY ASSIST UP TO SHOWER. PT INDEPENDANT IN SHOWER. LINENS CHANGED. NO ADDITIONAL NEEDS AT THIS TIME. PT DEMONSTRATES USE OF CALL LIGHT.
--- NOTE | 2021-12-08 16:15 | NUR ---
THIS RN TO ROOM TO CHECK ON PT. PT RESTING ON RIGHT SIDE WITH EYES CLOSED. RESPIRATIONS EVEN AND UNALBORED. BED RAILS UP. CALL LIGHT WITHIN REACH. PT ALLOWED TO REST.
--- NOTE | 2021-12-08 16:31 | NUR ---
TALKED TO LIDA CHUNG PATIENT IS RESTING BS HAVE BEEN CLEAR NO TREATMENT NEEDED AT THIS TIME
--- NOTE | 2021-12-08 16:48 | NUR ---
PT CALL LIGHT ON. PT REQUESTS PAIN AND ANXIETY MEDICATION. PT REPORTS 9/10 PAIN IN LEFT HAND. SEE MAR FOR MEDICATION GIVEN. PT ALSO REPORTS ANXIETY STATING "I FEEL LIKE I CAN'T BE IN MY OWN SKIN RIGHT NOW." LEFT HAND ELEVATED IN PILLOW SLING. PT REQUESTS BROWNIES AND COOKIES FOR SNACK. CRACKERS, APPLESAUCE AND JELLO PROVIDED. [place] CALLED FOR ADDITIONAL BEER. NO ADDITIONAL REQUESTS OR COMPLAINTS. CALL LIGHT WITHIN REACH. BED RAILS UP.
--- NOTE | 2021-12-08 17:53 | NUR ---
PT HERE FOR LEFT HAND WOUND AND CELLULITIS. PT UP INDEPENDANTLY IN ROOM TO VOID AND FOR SHOWER THIS SHIFT. PT TOELRATING REGUAL DIET WITH BEERS AT MEALS AND PRN. PT HAD GOOD APPITITE. PT ANXIOUS THROUGHOUT SHIFT AND REQUESTS ANXIETY MEDICAITON, PRN MEDICATION GIVEN. 8-08/08 PAIN, PRN PAIN MEDICATIONS GIVEN. NEW PICTURES OF LEFT HAND WOUND TAKEN. WOUND REDRESSED THIS AM AFTER DEBRIEDMENT BY BRIDGET SOLIS. DRESSING REMAINS INTACT WITH YELLOW SHADOWING NOTED. PICC LINE WNL, IV ABX GIVEN. ADDITIONAL BLOOD CULTURES DRAWN THIS SHIFT. PT VOIDING QUANTITY SUFFICIENT. PT USES CALL LIGHT AND MAKES NEEDS KNOWN.
--- NOTE | 2021-12-08 18:30 | NUR ---
THIS RN TO ROOM TO CHECK ON PT. PT UP TO CHAIR EATING DINNER. PT CRYING. PT REPORTS 12/10 PAIN IN LEFT HAND. PT REPORTS "IT'S MY ANXIETY." PRN TYELNOL GIVEN. PT OFFERED A DRESSING CHANGE, ICE PACK, POSITION CHANGES. PT ACCEPTS DRESSING CHANGE. DRESSING CHANGD TO LEFT HAND. WHITE DRAINGE NOTED. WOUND UNCHANGED FROM THIS MORNINGS ASSESSMENT. MEDIHONEY APPLIED FOLLOWED BY XEROFORM AND KERLIX. PT TOLLERATED DRESSING CHANGE STATING "NOW I FEEL BETTER." PT REPORTS ANGER OVER HER NOT BEING PRESENT. PT ASKS IF ANYONE HAS CALLED. PT REQUESTS ADDITIONAL BEER, PROVIDED. PT REMAINS UP TO CHAIR. NO ADDITIONAL REQUESTS OR COMPLAINTS. CALL LIGHT WITHIN REACH.
--- NOTE | 2021-12-08 19:12 | NUR ---
IN ROOM FOR REPORT, PT IS AWAKE IN BED TALKING ON THE PHONE. SHE DENIES NEEDS, CALL LIGHT IS CLOSE.
--- NOTE | 2021-12-08 19:59 | NUR ---
PT CALLED FOR APPLESAUCE BEER AND CRACKERS. SHE DENIES FURTHER NEEDS. CALL LIGHT IS CLOSE.
--- NOTE | 2021-12-08 21:16 | NUR ---
IN ROOM TO ASSESS PT AND ADMINISTER OXYCODONE FOR 8/10 PAIN. PT STATES PAIN IS 6 IF SHE IS STAYING STILL. SHE WAS JUST UP TO USE THE RESTROOM. ICE PROVIDED FOR L HAND WHICH IS ELEVATED IN THE PILLOW SLING. PT HAS BEER AT BEDSIDE AND STATES SHE IS ANXIOUS. ADVISED PT SHE CAN HAVE MORE VISTARIL IN AN HOUR AND TO CALL IF SHE IS AWAKE. PT DENIES FURTHER NEEDS AT THIS TIME. CALL LIGHT IS CLOSE.
--- NOTE | 2021-12-08 22:58 | NUR ---
DEMETRIA RN REPORTED PT HAD NAUSEA WITH A SMALL AMOUNT OF EMESIS AND 10/10 PAIN. PT ALSO COMPLAINS OF ANXIETY. SHE ADMINISTERED VISTARIL AND TYLENOL PER ORDERS. PT ALSO WANTED DRESSING CHANGED, SHE CHANGED IT FOR PT.
--- NOTE | 2021-12-09 00:38 | NUR ---
IN ROOM TO START IV ABX. PICC FLUSHES GOOD AND GOOD BLODD RETURN. PT BRIEFLY OPENED EYES AND FELL BACK ASLEEP. SHE IS RESTING WITH EYES CLOSED, RR IS EVEN AND UNLABORED. CALL LIGHT IS CLOSE AND L ARM IS IN PILLOW SLING.
--- NOTE | 2021-12-09 01:47 | NUR ---
IN ROOM TO HEPLOCK IV AFTER VANCO COMPLETE. PT IS RESTING WITH EYES CLOSED, RR IS EVEN AND UNLABORED. CALL LIGHT IS CLOSE.
--- NOTE | 2021-12-09 02:10 | NUR ---
PT CALLED ASKING FOR PAIN MEDS FOR 10/10 PAIN IN HAND AND A HEADACHE. ADMINISTERED 10MG PO OXYCODONE AND PROVIDED A SANDWICH BOX AND APPLESAUCE. WARM BLANKET PROVIDED AND PT DENIES FURTHER NEEDS. PT HAS HAD L HAND IN SLING FOR MOST OF THE NIGHT.
--- NOTE | 2021-12-09 04:54 | NUR ---
PT IS RESTING WITH EYES CLOSED, RR IS EVEN AND UNLABORED. CALL LIGHT IS CLOSE.
--- NOTE | 2021-12-09 06:40 | NUR ---
PT ASKING FOR SOMETHING FOR HER BACK AND NECK PAIN. PT REPORTS "8 OR 9" OUT OF 10, MEDICATED WITH 10 MG OXYCODONE PO, 500MG TYLENOL PO.
--- NOTE | 2021-12-09 07:21 | NUR ---
REPORT RECEIVED FROM LIDA ROMERO. PT RESTING WITH EYES CLOSED UP TO CHAIR, RESPIRATIONS EVEN AND UNLABORED. CALL LIGHT WITHIN REACH. PT ALLOWED TO REST.
--- NOTE | 2021-12-09 08:08 | NUR ---
MORNING ASSESSMENT AND MEDICATION DUE. PT UP TO CHAIR, RESTING WITH EYES CLOSED. PT WAKING UP NATURALLY WITH MOVEMENT AND SOUNDS IN ROOM. PT REPORTS 7/10 PAIN IN LEFT HAND THIS MORNING. PAIN MEDICATION RECENTLY GIVEN, PT DENIES NEED FOR ADDITIONAL PAIN MEDICATIONS AT THIS TIME. PT DENEIS NEED FOR ANXIETY MEDICATION WELL. PT CALM AND COOPERATIVE WITH CARES THIS MORNING. PT SEEMS IN GOOD SPIRITS AND REPORTS SHE SLEPT WELL LAST NIGHT. PICC LINE ASSESSED, WNL. REMAINS HEPARIN LOCKED AT THIS TIME, WILL RE-HEPARIN LOCK AND FLUSH AFTER VANCO INFUSION. PT REMAINS ALERT AND OREINTED. LUNG SOUND CLEAR. COURS SOUNDS CLEAR WHEN PT IS ENCORUAGD TO COUGH. HEART TONES REGULAR. LEFT HAND DRESSING SHOWS YELLOW DRAINAGE IN 3INCH CIRCUMFRANCE. DRESSING REMOVED. WHITE SLOUGHING NOTED BELOW MIDDLE FINGER WITH REDNESS AND MACERATION AROUND SLOUGHING, SLOUGH COVERS 3CM X2MC AREA. SKIN LESS MACERATED THAN DURING YESTERDAYS ASSESSMENT. BRUSING NOTED THROUGHOUT TOP OF HAND. PEELING SKIN CONTINUES OVER TOP OF HAND. REDNESS THROUGH FORARM RECEEDING AND WELL WITHIN OUTLINED AREA. MIDDLE FINGER ALSO NOTED TO HAVE PEELING SKIN. NEW DRESSING APPLIED, MEDIHONEY, XEROFORM AND KERLIX PER MD ORDER. PT CONTINEUS TO REPORT CONSITPATION AND REQUESTS MEDICATION, SEE MAR FOR MEDICATION GIVEN. LAST BOWEL MOVEMENT WAS LAST NIGHT. PT REPORTS THIS BOWEL MOVEMENT WAS "A LITTLE HARD." PT REMAINS UP TO CHAIR EATING BREAKFAST. BEER PROVIDED PER PT REQUEST. NO ADDITIONAL REQUESTS OR COMPLAINTS. CALL LIGHT WITHIN REACH.
--- NOTE | 2021-12-09 09:49 | NUR ---
THIS RN TO ROOM WITH BRIDGET SOLIS AND DR. BACON. PT UPDATED ON PLAN OF CARE. NEW ORDERS PLACED. PT VERBALIZES UNDERSTANDING OF PLAN OF CARE AND STATES HER QUESTIONS HAVE BEEN ANSWERED. PT REPORTS 9/10 PAIN IN LEFT HAND AND ANXIETY. SEE MAR FOR MEDICATION GIVEN. PT OFFERED SLING FOR LEFT HAND AND ICE PACK. PT ACCPETS ICE PACK BUT DECLINES SLING. PT UP TO CHAIR, WORKING ON COMPUTER. NO ADDITIONAL REQUESTS OR COMPLAINTS. CALL LIGHT WITHIN REACH.
--- NOTE | 2021-12-09 11:52 | NUR ---
THIS RN TO ROOM TO CHECK ONPT. PT UP TO CHAIR. PTS AT BEDSIDE. PT STATES SHE IS GLAD HE IS "FINALLY HERE TO VISIT." PT REPORTS 9/10 PAIN IN LEFT HAND, SEE MAR FOR MEDICATION GIVEN. PT REPORTS SHE WAS UP TO THE RESTROOM. LARGE FORMED BOWEL MOVEMENT NOTED IN TOILET. PT EDUCATION DONE ON WOUND CARE. PT ANTICIPATING LUNCH. KAIAKO KOHANGA REO TRAY ORDERED FOR PTS HSUBAND. NO ADDITIONAL REQUESTS OR COMPLAINTS. CALL LIGHT WITHIN REACH.
--- NOTE | 2021-12-09 12:21 | NUR ---
VANCO ARRIVED FROM [facility]. PT VISITING WITH [facility] COVERER FOR DISCHARGE PLANNING. PICC LINE ASSESSED, WNL. BRISK BLOOD RETURN NOTED. VANCO STARTED. PT DENIES ADDITIONAL REQUESTS OR COMPLAINTS AT THIS TIME. PT REPORTS /10 PAIN IN LEFT HAND STATING THE PAIN MEDICATION IS "HELPING." PT DENIES ADDITIONAL REQUESTS OR COMPLAINTS. LUNCH DELIVERED. CALL LIGHT WITHIN REACH. AT BEDSIDE.
--- NOTE | 2021-12-09 12:51 | NUR ---
THIS RN TO ROOM TO CHECK ON PT. PT CONTINUES TO REPORTS 6/10 PAIN IN HAND. PT WOULD LIKE DRESSING CHANGED "TO SHOW MY WHAT IT LOOKS LIKE." EDUATION DONE WITH PT AND DRESSING CHANGE PLANNED FOR THIS AFTERNOON. PT AGREES TO PLAN OF CARE. NO ADDITIONAL REQUESTS OR COMPLAINTS PT FINISHING LUNCH WITH . CALL LIGHT WITHIN REACH.
--- NOTE | 2021-12-09 13:00 | NUR ---
Spoke with Alysa and her spouse. She plans on dc tomorrow. She states she needs help with transportation, insurance, water. Discussed I have placed a referral to [facility]anks and pt is aware. She will assist pt with water as the house they are staying the water has been shut off. She remains on [place] medicaid and she will contact them and to stop and change to [place]. [facility] for when she gets on [place]. Gave pt the card for [facility] and they will follow up with her. She gave me her [employer] phone numbers, She does not have WIFI at home and so no cell phone service. WIFI [phone], , Friends phone is [phone] Vaishnavi can contact phone and she lives downstairs. She will take phone to pt.
--- NOTE | 2021-12-09 13:21 | NUR ---
PT SITTING IN CHAIR, SEEMS TO BE ENJOYING THE SUN SHINING IN. WOULD LIKE A VISIT ANOTHER TIME. GAVE BLESSING, WILL FOLLOW
--- NOTE | 2021-12-09 16:41 | NUR ---
THIS RN TO ROOM TO CHECK ON PT. PT SITTING UP IN BED. PT REPORTS 8/10 PAIN IN LEFT HAND AND REQUESTS PAIN MEDICAITON (SEE MAR FOR MEDICATION GIVEN). PT DENIES NAUSEA. PT REPORTS SHE HAS BEEN CALLING NUMBERS THAT WERE PROVIDED BY GU[facility], CASE MANAGMENT, TO ARRANGE ITEMS FOR DISCHARGE. PT ALSO REQUESTS TO SPEEK WITH THE DITTO MACHINE OPERATOR IN THE MORNING. NOTE LEFT FOR BILLING SPEC TO PASS ON TO DAY SHIFT. CHARGE NURSE UPDATED. PT REQUESTS UNRULY, PROVIDED. NO ADDITIONAL REQUESTS OR COMPLAINTS. CALL LIGHT WITHIN REACH. BED RAILS UP.
--- NOTE | 2021-12-09 17:00 | NUR ---
PT HERE FOR LEFT HAND WOUND AND CELLULITIS. PT INDEPENDANT IN ROOM AND UP TO CHAIR FOR MOST OF SHIFT. PT TOELRATING REGULAR DIET WITH GOOD APPITITE, BEERS PROVIDED WITH MEALS AND BETWEEN PRN. DRESSING TO LEFT HAND CHANGED X2, PICTURES TAKEN. PRN PAIN AND ANXIETY MEDICAITONS GIVEN. PICC LINE REMAINS HEPARIN LOCKED BUT FOR VANCO INFUSION THIS SHIFT. LONG DISCUSSION WITH CASE MANAGEMENT THIS SHIFT FOR DISCHARGE PLANNING. PT ANTICIPATING DISCHARGE TOMORROW AND ATTEMPTING TO PREPAR FOR WHAT SHE WILL NEED. PTS AT BEDSIDE THIS SHIFT. PT VOIDING QUANTITY SUFFICENT. PT USES CALL LIGHT AND MAKES NEEDS KNOWN.
--- NOTE | 2021-12-09 17:31 | NUR ---
DINNER DELIVERED TO PT AND . BEER PROVIEDED FOR PT. PT REPORTS THROBBING PAIN IN LEFT HAND AT A 4/10. PT DENIES NEED FOR ADDITIONAL MEDICATION AT THIS TIME. NO ADDITIONAL REQUESTS OR COMPLAINTS. CALL LIGHT WITHIN REACH. BED RAILS UP.
--- NOTE | 2021-12-09 18:31 | NUR ---
THIS RN TO ROOM TO CHECK ON PT. PT WORKING ON COMPUTER. PT ATE 100% OF DINNER, ADDITIONAL BEER PROVIDED. PT REPORTS 5/10 PAIN IN LEFT HAND "BECUASE I'M USING IT A LOT." PTS NOT AT BEDSIDE PT UNSURE WHERE HE WENT BUT STATES "HE'S COMING BACK TONIGHT." PT DENIES ADDITIONAL REQUESTS OR COMPLAINTS. CALL LIGHT WITHIN REACH. BED RAILS UP.
--- NOTE | 2021-12-09 19:10 | NUR ---
IN ROOM FOR REPORT, PT IS AWAKE IN BED. SHE WOULD LIKE TO SHOWER TONIGHT, SHE DENIES FURTHER NEEDS. CALL LIGHT IS CLOSE.
--- NOTE | 2021-12-09 20:55 | NUR ---
VS AND I&Os DONE, PT SETUP FOR THE SHOWER
--- NOTE | 2021-12-09 22:46 | NUR ---
IN ROOM TO ASSESS PT AND ADMINISTER MEDICATIONS. ADMINISTERED OXYCODONE 10MG, AND TYLENOL FOR 9/10 PAIN. PT SHOWERED AND DRESSING WAS WRAPPED BUT IT GOT DAMP. REDRESSED L HAND AND PICTURES TAKEN. PICC LINE IS HEPLOCKED AND PT NOW HAS PO ABX. SHE DENIES FURTHER NEEDS AT THIS TIME. CALL LIGHT IS CLOSE.
--- NOTE | 2021-12-10 00:23 | NUR ---
PT IS RESTING WITH EYES CLOSED, RR IS EVEN AND UNLABORED. CALL LIGHT IS CLOSE.
--- NOTE | 2021-12-10 02:09 | NUR ---
PT IS RESTING WITH EYES CLOSED, RR IS EVEN AND UNLABORED. CALL LIGHT IS CLOSE.
--- NOTE | 2021-12-10 03:20 | NUR ---
PT REPORTS 7/10 LEFT HAND PAIN, PRN PAIN MED PROVIDED. WARM BLANKET PROVIDED. NO OTHER NEEDS. CALL LIGHT IN REACH.
--- NOTE | 2021-12-10 03:32 | NUR ---
PT WAS JUST ADMINISTERED OXYCODONE FOR PAIN BY BOATHOUSE KEEPERLIDA DIA. PT DENIES NEEDS AT THIS TIME. PT'S L ARM IS IN PILLOW SLING, DRESSING IS INTACT AND CALL LIGHT IS CLOSE.
--- NOTE | 2021-12-10 06:19 | NUR ---
PT IS RESTING WITH EYES CLOSED, RR IS EVEN AND UNLABORED. CALL LIGHT IS CLOSE.
--- NOTE | 2021-12-10 07:45 | NUR ---
REPORT RECEIVED FROM NIGHT RN AND PT. CARE RESUMED. PT. IS ALERT AND ORIENTED TO ALL. SHE C/O 4/6 PAIN IN LEFT HAND. ADMIN OXYCODONE AND TYLENOL. LEFT HAND DRESSING IS C.D.I. AND REDDNESS REMAINS WITHIN OUTLINE. DISCUSSED POC AND MEDS. PT. LEFT RESTING WITH CALL LIGHT IN REACH.
--- NOTE | 2021-12-10 11:08 | NUR ---
LIDA CHUNG INFORMED ME PT WOULD LIKE A VISIT. STOPPED BY PT-SHE IS ALERT AND ORIENTED. PT SAID SHE WAS HAVING A TOUGH DAY, HADN NOT HEALING AT A PACE SHE WOULD LIKE. PT STILL SEEMS A LITTLE DISTANT, DR HOLLIS INTO CARE FOR PT. WILL CHECK BACK. GAVE BLESSING AND WILL FOLLOW
[2021-12-10] MEDS ORDERED: DOXYCYCLINE HY100 MG PO (11:09)
[2021-12-10] MEDS ORDERED: BACTRIM DS TAB1 EACH PO (11:09)
[2021-12-10] MEDS ORDERED: OXYCODONE HCL5 MG PO (11:25)
--- NOTE | 2021-12-10 11:55 | NUR ---
REFERRAL AND ORDER FAXED TO [facility] PER PATIENT REQUEST.
--- NOTE | 2021-12-10 12:00 | NUR ---
PT. DEMONSTRATED WOUND CARE DRESSING CHANGES. PICC REMOVED WITH CATH INTACT. PRESSURE HELD AND DRESSING APPLIED. PT. EDUCATED ON CARE.
== END 2021-12-10 13:03 | disposition home or self-care (01) | DRG 603 ==
LOC: ED 22:00 → MS 12-05 01:44
PROVIDERS: ADMIT Internal Medicine; ATTEND Internal Medicine
PROC: 02HV33Z Insertion of Infusion Device into Superior Vena Cava, Percutaneous Approach (ICD-10-PCS; principal; 2021-12-06 12:30)
DX: L03.114 Cellulitis of left upper limb (principal); L02.512 Cutaneous abscess of left hand; Z16.21 Resistance to vancomycin; F41.9 Anxiety disorder, unspecified; F17.210 Nicotine dependence, cigarettes, uncomplicated; Z20.822 Contact with and (suspected) exposure to COVID-19; Z79.899 Other long term (current) drug therapy; F10.20 Alcohol dependence, uncomplicated; J45.909 Unspecified asthma, uncomplicated; B95.62 Methicillin resistant Staphylococcus aureus infection as the cause of diseases classified elsewhere; I10 Essential (primary) hypertension
CPT/HCPCS: 36415; 36569; 71045; 80048; 80053; 80202; 83605; 85025; 85610; 87070; 87075; 87077; 87186; 87205; 94668; 94760; 96375; 96376; 99284-25; 99406; A9270; C1751; C9803; J1170; J1650; J1885; J1956; J2270; J2405; J3370; J7030; J7060; J7121; Q0177; Q9967; U0003

== ENCOUNTER 2023-01-30 02:15 | Emergency (ER) | payer SELFPAY ==
[~2023-01-30] VITALS: Ht 170.2 cm; Wt 90.7 kg
[~2023-01-30 02:15] MED LIST changes: +BACTRIM DS TAB1 EACH PO; +CEPHALEXIN500 M1 PO; +ELIQUIS5 MG PO; +HYDROCODON-ACE1 EA10 PO; +ONDANSETRON ODT4 MG PO; +OXYCODONE HCL5 MG PO; +VENTOLIN HFA18 GM INH
== END 2023-01-30 03:52 | disposition home or self-care (01) ==
LOC: ED 02:15
DX: S30.1XXA Contusion of abdominal wall, initial encounter (principal); W22.8XXA Striking against or struck by other objects, initial encounter; J45.909 Unspecified asthma, uncomplicated; F17.200 Nicotine dependence, unspecified, uncomplicated
CPT/HCPCS: 36415; 74177; 80053; 81003; 85025; 99284-25; G0480; J1885; Q9967